=== PATIENT | female | born 1960 | race Caucasian/White ===

== ENCOUNTER 2024-10-15 07:41 | Outpatient (CLI) | payer MEDICAID ==
[~2024-10-15 07:41] MED LIST: GADOTERATE MEGLUMINE 7.5 MMOL/15 ML VIAL IV ONE; LIDOcaine 1% 30ml preserv. free vial ONE; LIDOcaine 1%/PF 5ML 10 MG/ML VIAL ONE; iohexol 300 MG/1 ML 50ml polymer ONE
== END 2024-10-15 23:59 | disposition home or self-care (01) ==
LOC: RAD 07:41
PROVIDERS: ATTEND Orthopaedic Surgery
DX: S46.011A Strain of muscle(s) and tendon(s) of the rotator cuff of right shoulder, initial encounter (principal); M19.011 Primary osteoarthritis, right shoulder; X58.XXXA Exposure to other specified factors, initial encounter; Y93.89 Activity, other specified; Y92.89 Other specified places as the place of occurrence of the external cause; Y99.8 Other external cause status
CPT/HCPCS: 23350; 73201; 77002; J2003; J3490; Q9967; 73040; A9575

== ENCOUNTER 2025-05-26 06:15 | Outpatient (CLI) | payer MEDICAID ==
[2025-05-26] MEDS ORDERED: LIDOcaine 1% 30ml preserv. free vial ONE (06:41)
[2025-05-26] MEDS ORDERED: GADOTERATE MEGLUMINE 7.5 MMOL/15 ML VIAL IV ONE (06:41)
[2025-05-26] MEDS ORDERED: iohexol 350 MG/ML 50ML vial IV ONE (06:41)
[2025-05-26] MEDS ORDERED: LIDOcaine 1%/PF 5ML 10 MG/ML VIAL ONE (06:41)
--- NOTE | 2025-05-26 09:10 | RADIOLOGY REPORT ---
C-ARM FLUOROSCOPY: PROCEDURE: Right shoulder CT arthrogram FLUOROSCOPY TIME: 0.1 DAP: 1 mgy FINDINGS: Spot intraoperative C arm radiographs demonstrating joint injection for right shoulder CT arthrogram. IMPRESSION: Please refer to surgical report for detailed findings.
--- NOTE | 2025-05-26 09:29 | RADIOLOGY REPORT ---
CLINICAL INDICATION: STRAIN OF MUSC/TEND THE ROTATOR CUFF OF RIGHT SHOULDER, INIT TECHNIQUE: CT arthrogram of the right shoulder was performed. Sagittal and coronal reformatted images are provided. Please see separate procedure report. COMPARISON: CT CT UPPER EXTREM(SHOULDER/ARM) on DOS: 10/15/24 CT Dose: CTDI volume is 25.8 mGy. Dose-length product is 586.7 mGy*cm FINDINGS: There is good distention of the glenohumeral joint with intra-articular contrast. Contrast extends in to the superior subscapularis recess. There are bone anchors in the humeral head new since the prior CT suggesting prior rotator cuff repair. There is a thin cleft of intra-articular contrast within a t endon defect along the expected course of supraspinatus, suspicious for a partial-thickness tear. The re is intra-articular contrast in the subacromial subdeltoid bursa. Cortical irregularity superolateral humeral head suggesting sequelae of the prior surgery. Long head biceps tendon is not identified at the level of the bicipital groove which may reflect sequelae of pr ior tenodesis. The acromioclavicular joint space is narrowed with subchondral cysts on both sides. The glenohumeral joint space is maintained. No acute fracture or dislocation. Subcutaneous emphysema and swelling in the right shoulder. IMPRESSION: 1. Interval rotator cuff surfaces prior CT from OctoberPartial-thickness supraspinatus tear is s uspected. 2. Degenerative changes in the acromioclavicular joint. 3. Long head biceps tendon not visualized at the bicipital groove and may reflect biceps tenodesis. All CT scans at this medical facility are performed using dose modulation techniques as appropriate t o a performed exam including the following: Automated exposure control was utilized; adjustment of th e MA and/or KV according to patient size; and use of iterative reconstruction technique.
== END 2025-05-26 23:59 | disposition home or self-care (01) ==
LOC: RAD 06:15
PROVIDERS: ATTEND Orthopaedic Surgery
DX: S46.011A Strain of muscle(s) and tendon(s) of the rotator cuff of right shoulder, initial encounter (principal); S43.431A Superior glenoid labrum lesion of right shoulder, initial encounter; M75.21 Bicipital tendinitis, right shoulder; M75.41 Impingement syndrome of right shoulder; M19.011 Primary osteoarthritis, right shoulder; X58.XXXA Exposure to other specified factors, initial encounter; Y93.89 Activity, other specified; Y92.89 Other specified places as the place of occurrence of the external cause; Y99.8 Other external cause status
CPT/HCPCS: 23350; 73201; 77002; J2003; J3490; Q9967; A9575